=== PATIENT | female | born 1940 | race Caucasian/White ===

== ENCOUNTER → 2016-08-30 | Outpatient (CLI) | payer MEDICARE ==
[~2016-08-30] MED LIST: ALPH300C PO; ARGI500C PO; ASCO500T8 PO; ATOR40TA78 PO; CHLO25TA PO; LABE200T3 PO; LOSA100T6 PO; POTA10TA31 PO
[2016-08-30 14:20] LABS: HEMOGLOBIN 12.7 g/dL (11.7-16.4)
[2016-08-30 14:29] LABS: PATH.CAST-FLAG NOT PRESENT; SPERM-FLAG NOT PRESENT; SRC-FLAG NOT PRESENT; XTAL-FLAG NOT PRESENT; YLC-FLAG NOT PRESENT
[2016-08-30 14:32] LABS: ASPARTATE AMINO TRANSFERASE 18 U/L (15-37); BLOOD UREA NITROGEN 19 mg/dL (7-18)
== END | disposition home or self-care (01) ==
LOC: STAR 13:05
PROVIDERS: ATTEND Orthopaedic Surgery
DX: M16.11 Unilateral primary osteoarthritis, right hip (principal); M17.11 Unilateral primary osteoarthritis, right knee; M25.551 Pain in right hip
CPT/HCPCS: 36415; 80053; 81001; 85025; 87081; 93005

== ENCOUNTER 2016-09-06 07:02 | Inpatient (IN) | payer MEDICARE ==
[~2016-09-06] VITALS: Ht 162.6 cm; Wt 96.2 kg
[~2016-09-06 07:02] MED LIST changes: +EPINEPHRINE 1 MG/ML, 1ML ONE; +KETOROLAC 60 MG/2 ML ONE; +ROPIvacaine/PF 0.2%, 20 ML ONE; +SODIUM CHLORIDE 0.9% 50 ML ONE
[2016-09-06] MEDS ORDERED: LACTATED RINGERS 1,000 ML IV SCH (07:40)
[2016-09-06 07:44] VITALS: BP 167/101
[2016-09-06] MEDS ORDERED: FENTANYL PF 250 MCG/5ML ONE (07:58)
[2016-09-06] MEDS ORDERED: MIDAZOLAM 1 MG/ML, 2ML ONE (07:58)
[2016-09-06] MEDS ORDERED: TRANEXAMIC ACID 100 MG/ML, 10ML ONE (09:01)
[2016-09-06] MEDS ORDERED: FENTANYL PF 100 MCG/2ML IV PRN (10:00)
[2016-09-06] MEDS ORDERED: ONDANSETRON 2MG/ML, 2ML IVPush PRN (10:00)
[2016-09-06] MEDS ORDERED: LABETALOL 5MG/ML, 20ML IV PRN (10:00)
[2016-09-06] MEDS ORDERED: METOCLOPRAMIDE 5 MG/ML, 2ML IV PRN (10:00)
[2016-09-06] MEDS ORDERED: OXYcodone 5 MG/5 ML ORAL.SOL UDC PO PRN (10:00)
[2016-09-06] MEDS ORDERED: HYDROmorphone 1 MG/ML, 1ML IV PRN ×2 (10:00→11:00)
[2016-09-06] MEDS ORDERED: ACETAMINOPHEN 325 MG TABLET PO PRN (10:00)
[2016-09-06] MEDS ORDERED: hydrALAzine 20 MG/ML, 1ML IV PRN (10:00)
[2016-09-06] MEDS ORDERED: ALUMINUM/MAG/SIMETHICONE 30 ML UDC PO PRN (11:00)
[2016-09-06] MEDS ORDERED: BISACODYL 10 MG SUPP PR PRN (11:00)
[2016-09-06] MEDS: ACETAMINOPHEN 650 MG/20.3 ML UDC PO SCH ×3 (11:00→23:17)
[2016-09-06] MEDS ORDERED: ONDANSETRON 4 MG TABLET PO PRN (11:00)
[2016-09-06] MEDS ORDERED: DIPHENHYDRAMINE 50 MG CAPSULE PO PRN (11:00)
[2016-09-06] MEDS ORDERED: SENNA/DOCUSATE TABLET PO PRN (11:00)
[2016-09-06] MEDS: TAMSULOSIN 0.4 MG CAP.ER.24H PO SCH (11:00)
[2016-09-06] MEDS ORDERED: MAGNESIUM HYDROXIDE 8%, 30ML UDC PO PRN (11:00)
[2016-09-06] MEDS ORDERED: ONDANSETRON 2MG/ML, 2ML IV PRN (11:00)
[2016-09-06] MEDS ORDERED: TRANEXAMIC ACID 1,000 MG in SODIUM CHLORIDE 0.9% 100 ML IVPB ONE (11:15)
[2016-09-06] MEDS ORDERED: OXYcodone 5 MG/5 ML ORAL.SOL UDC ONE (11:41)
[2016-09-06] MEDS ORDERED: SCOPOLAMINE PATCH, 1.5MG PATCH.TD72 TD SCH (13:00)
[2016-09-06] MEDS: LABETALOL 200 MG TABLET PO SCH ×2 (13:00→20:57)
[2016-09-06 14:00] VITALS: BP 138/71
[2016-09-06] MEDS ORDERED: ONDANSETRON 2MG/ML, 2ML ONE (15:50)
[2016-09-06] MEDS ORDERED: SUCCINYLCHOLINE 20 MG/ML, 10ML ONE (15:50)
[2016-09-06] MEDS ORDERED: PROPOFOL 10 MG/ML, 20ML ONE (15:50)
[2016-09-06] MEDS ORDERED: DEXAMETHASONE 4 MG/ML, 1ML ONE (15:50)
[2016-09-06] MEDS ORDERED: ROCURONIUM 10 MG/ML ONE (15:50)
[2016-09-06] MEDS ORDERED: CEFAZOLIN 1,000 MG ONE (15:50)
[2016-09-06] MEDS: CEFAZOLIN PMX 2GM/50ML 50 ML IVPB SCH (16:52)
[2016-09-06] MEDS: SODIUM CHLORIDE 0.9% 1,000 ML IV SCH (16:52)
[2016-09-06] MEDS: ASPIRIN 81 MG TABLET EC PO SCH (17:44)
[2016-09-06 19:45] VITALS: BP 109/73
[2016-09-06 20:57] VITALS: BP 101/67
[2016-09-06] MEDS: DOCUSATE 100 MG CAPSULE PO SCH (20:57)
[2016-09-06] MEDS ORDERED: ATORVASTATIN 40 MG TABLET PO SCH (21:00)
[2016-09-07 00:05] VITALS: BP 99/61
[2016-09-07] MEDS: CEFAZOLIN PMX 2GM/50ML 50 ML IVPB SCH (01:03)
[2016-09-07] MEDS: OXYcodone IR 5MG TABLET PO PRN ×3 (02:40→13:43)
[2016-09-07 02:44] VITALS: BP 111/70
[2016-09-07] MEDS: SODIUM CHLORIDE 0.9% 1,000 ML IV SCH ×2 (04:50→09:15)
[2016-09-07] MEDS: LABETALOL 200 MG TABLET PO SCH ×2 (04:54→13:43)
[2016-09-07 04:55] VITALS: BP 107/68
[2016-09-07] MEDS: ACETAMINOPHEN 650 MG/20.3 ML UDC PO SCH ×2 (05:51→11:09)
[2016-09-07] MEDS: ASPIRIN 81 MG TABLET EC PO SCH (05:52)
[2016-09-07] MEDS ORDERED: DEXAMETHASONE 4 MG/ML, 5ML IVPush SCH (06:00)
[2016-09-07 07:00] VITALS: BP 125/65
[2016-09-07] MEDS ORDERED: POTASSIUM CHLORIDE 10 MEQ TABLET.ER PO SCH (09:00)
[2016-09-07] MEDS ORDERED: LOSARTAN 50MG TABLET PO SCH (09:00)
[2016-09-07] MEDS ORDERED: CHLORTHALIDONE 25 MG TABLET PO SCH (09:00)
[2016-09-07] MEDS ORDERED: MULTIVITAMINS/MINERALS TABLET PO SCH (09:00)
[2016-09-07 09:26] VITALS: BP 145/84
[2016-09-07] MEDS: TAMSULOSIN 0.4 MG CAP.ER.24H PO SCH (09:27)
[2016-09-07] MEDS: DOCUSATE 100 MG CAPSULE PO SCH (09:28)
[2016-09-07] MEDS ORDERED: FLU VACC QS2016-17 (36MOS+)UP/PF 0.5 ML IM-VACC ONE (10:30)
[2016-09-07] MEDS ORDERED: PNEUMOCOCCAL 23 VACCINE IM-VACC ONE (10:30)
[2016-09-07 13:38] VITALS: BP 107/70
[2016-09-07] MEDS ORDERED: OXYC5TAB3 PO (14:50)
== END 2016-09-07 15:25 | disposition home or self-care (01) | DRG 470 ==
LOC: ORIP 07:02 → 4NOR 12:21 → DCLOUNGE 09-07 14:45
PROVIDERS: ADMIT Orthopaedic Surgery; ATTEND Orthopaedic Surgery
PROC: 0SR902A Replacement of Right Hip Joint with Metal on Polyethylene Synthetic Substitute, Uncemented, Open Approach (ICD-10-PCS; principal; 2016-09-06 09:30)
DX: M16.11 Unilateral primary osteoarthritis, right hip (principal); I10 Essential (primary) hypertension; Z72.89 Other problems related to lifestyle; Z23 Encounter for immunization
CPT/HCPCS: 72170; 90686; 90732; C1713; J0171; J0690; J1100; J1885; J2250; J2405; J2704; J2795; J3010; C1776; J0330; J7030; J7120

== ENCOUNTER 2017-06-08 14:44 | Emergency (ER) | payer MEDICARE ==
[~2017-06-08] VITALS: Ht 163.8 cm; Wt 89.7 kg
[~2017-06-08 14:44] MED LIST changes: -ARGI500C PO; +ARGI500C7 PO; -EPINEPHRINE 1 MG/ML, 1ML ONE; -KETOROLAC 60 MG/2 ML ONE; +OXYC5TAB3 PO; -ROPIvacaine/PF 0.2%, 20 ML ONE; -SODIUM CHLORIDE 0.9% 50 ML ONE
[2017-06-08] MEDS ORDERED: AZITHROMYCIN 500 MG in SODIUM CHLORIDE 0.9% 250 ML IV ONE (16:30)
[2017-06-08] MEDS ORDERED: CEFTRIAXONE PMX 1GM/50ML 50 ML IVPB ONE (16:30)
[2017-06-08] MEDS ORDERED: SODIUM CHLORIDE 0.9% 1,000ML IVBOLUS ONE (16:30)
[2017-06-08] MEDS ORDERED: SODIUM CHLORIDE FLUSH 10ML SYR IVF ONE (16:30)
[2017-06-08] MEDS ORDERED: CEFTRIAXONE PMX 1GM/50ML 50 ML ONE (16:41)
[2017-06-08] MEDS ORDERED: AZITHROMYCIN 250 MG TABLET ONE (16:41)
[2017-06-08] MEDS ORDERED: ALBUTEROL SULFATE 2.5 MG/3 ML ONE (16:42)
[2017-06-08] MEDS ORDERED: ALBUTEROL SULFATE 2.5 MG/3 ML NPPB ONE (17:00)
[2017-06-08] MEDS ORDERED: AZITHROMYCIN 500 MG TABLET PO ONE (17:00)
[2017-06-08 17:12] LABS: BASOPHILS # (AUTO) 0.04 x10^3/uL (0-0.1); BASOPHILS % (AUTO) 1 % (0-1); EOSINOPHILS # (AUTO) 0.05 x10^3/uL (0-0.4); EOSINOPHILS % (AUTO) 1 % (1-7); LYMPHOCYTES # (AUTO) 0.46 x10^3/uL (1-3.4); LYMPHOCYTES % (AUTO) 6 % (22-44); MD NO; MEAN CORPUSCULAR HEMOGLOBIN 32.4 pg (27.0-34.8); MEAN CORPUSCULAR HGB CONC 34.1 g/dL (32.4-35.8); MEAN CORPUSCULAR VOLUME 95.1 fL (80-100); MEAN PLATELET VOLUME 8.8 fL (7.4-10.4); MONOCYTES # (AUTO) 0.56 x10^3/uL (0.2-0.8); MONOCYTES % (AUTO) 7 % (2-9); NEUTROPHILS # (AUTO) 6.95 x10^3/uL (1.8-6.8); NEUTROPHILS % (AUTO) 86 % (42-75); PLATELET COUNT 200 x10^3/uL (130-400); RED BLOOD COUNT 3.94 x10^6/uL (3.82-5.3); RED CELL DISTRIBUTION WIDTH 12.3 % (9.6-15.2)
[2017-06-08 17:20] LABS: ALBUMIN 3.9 g/dL (3.4-5.0); ANION GAP 7 mmol/L (5-15); CHLORIDE 95 mmol/L (98-107)
[2017-06-08 17:21] LABS: CREATININE 0.68 mg/dL (0.55-1.02)
[2017-06-08 17:51] VITALS: BP 125/65
== END 2017-06-08 17:54 | disposition home or self-care (01) ==
LOC: ED 17:45
DX: J15.9 Unspecified bacterial pneumonia (principal); R06.00 Dyspnea, unspecified
CPT/HCPCS: 36415; 71020; 80048; 82040; 83605; 84145; 85025; 87040; 93005; 94640; 96365; 99285; J0696; J7030; J7613

== ENCOUNTER → 2018-03-22 | Outpatient (CLI) | payer MEDICARE ==
[~2018-03-22] MED LIST changes: -LABE200T3 PO; +LABE200T6 PO; -LOSA100T6 PO; +LOSA100T7 PO
== END | disposition home or self-care (01) ==
LOC: CFH 14:51
PROVIDERS: ATTEND Internal Medicine Cardiovascular Disease
DX: I08.3 Combined rheumatic disorders of mitral, aortic and tricuspid valves (principal); I11.9 Hypertensive heart disease without heart failure; I71.1 Thoracic aortic aneurysm, ruptured; E78.5 Hyperlipidemia, unspecified
CPT/HCPCS: 93306

== ENCOUNTER 2020-11-05 13:13 | Outpatient (CLI) | payer MEDICARE ==
[~2020-11-05 13:13] MED LIST changes: +LOSA100T14 PO; -LOSA100T7 PO; -OXYC5TAB3 PO; +OXYC5TAB98 PO
[2020-11-05] MEDS ORDERED: OMNIPAQUE 350 MG/ML, 100ML BOTTLE ONE (13:45)
== END 2020-11-05 23:59 | disposition home or self-care (01) ==
LOC: CFH 13:13
PROVIDERS: ATTEND Internal Medicine Cardiovascular Disease
DX: R91.8 Other nonspecific abnormal finding of lung field (principal); I71.2 Thoracic aortic aneurysm, without rupture; J98.4 Other disorders of lung; J98.11 Atelectasis; Q25.46 Tortuous aortic arch
CPT/HCPCS: 71275; Q9967

== ENCOUNTER 2021-02-12 16:42 | Emergency (ER) | payer MEDICARE ==
[~2021-02-12] VITALS: Ht 162.6 cm; Wt 91.0 kg
[2021-02-12 17:49] LABS: BASOPHILS % (AUTO) 1 % (0-1); EOSINOPHILS % (AUTO) 1 % (1-7); LYMPHOCYTES % (AUTO) 13 % (22-44); MEAN CORPUSCULAR HEMOGLOBIN 33.1 pg (27.0-34.8); MEAN CORPUSCULAR HGB CONC 35.2 g/dL (32.4-35.8); MEAN PLATELET VOLUME 8.4 fL (7.4-10.4); MONOCYTES % (AUTO) 12 % (2-9); NEUTROPHILS % (AUTO) 74 % (42-75); PLATELET COUNT 192 x10^3/uL (130-400); RED BLOOD COUNT 4.04 x10^6/uL (3.82-5.3); RED CELL DISTRIBUTION WIDTH 12.3 % (9.6-15.2)
--- NOTE | 2021-02-12 17:50 | NUR ---
PT PLACED ON ALL ROOM MONITORING, VSS. PT STATES PAIN TO "BRONCHIALS" WITH COUGH, GENERALIZED BODY ACHES SINCE YESTERDAY. COVID SWAB COLLECTED/WALKED TO LAB. CALL LIGHT WITHIN REACH. EKG COMPLETED AT BS.
[2021-02-12 18:01] LABS: ALANINE AMINOTRANSFERASE 32 U/L (12-78); ALBUMIN 3.8 g/dL (3.4-5.0); ANION GAP 9 mmol/L (5-15); CHLORIDE 96 mmol/L (98-107); CREATININE 0.51 mg/dL (0.55-1.02)
[2021-02-12 18:05] LABS: ALKALINE PHOSPHATASE 80 U/L (45-117); BILIRUBIN,TOTAL 1.1 mg/dL (0.2-1.0); TOTAL PROTEIN 7.2 g/dL (6.4-8.2); TROPONIN I < 0.015 ng/mL (0.000-0.045)
[2021-02-12] MEDS ORDERED: POTASSIUM CHLORIDE 20 MEQ TAB.ER.PRT ONE (18:29)
[2021-02-12] MEDS ORDERED: POTASSIUM CHLORIDE 20 MEQ TAB.ER.PRT PO ONE (18:30)
[2021-02-12 18:33] VITALS: BP 149/84
--- NOTE | 2021-02-12 18:35 | NUR ---
MED GIVEN PER ERP ORDER. AWAITING REEVAL BY ERP. VSS/UPDATED IN COMPUTER. CALL LIGHT WITHIN REACH.
== END 2021-02-12 19:04 | disposition home or self-care (01) ==
LOC: ED 17:00
DX: U07.1 COVID-19 (principal); J06.9 Acute upper respiratory infection, unspecified; R94.31 Abnormal electrocardiogram [ECG] [EKG]
CPT/HCPCS: 36415; 71045; 80053; 84484; 85025; 93005; 99285; U0003; U0005